=== PATIENT | female | born 2005 | race Caucasian/White ===

== ENCOUNTER 2024-12-28 11:10 | Emergency (ER) | payer OTHER, SELFPAY ==
[2024-12-28 11:46] VITALS: BP 115/64; PULSE 53; RESP 15; TEMP 36.8; O2SAT 98; BMI 23.1
== END 2024-12-28 13:22 | disposition left against medical advice (07) ==
PROVIDERS: Emergency Provider Physician Assistant
DX: R10.9 Unspecified abdominal pain (principal)
CPT/HCPCS: 99281